=== PATIENT | male | born 1970 | race Caucasian/White ===

== ENCOUNTER 2024-12-13 11:13 | Emergency (ER) | payer BC, OTHER, SELFPAY ==
[2024-12-13] MEDS ORDERED: Ketorolac Tromethamine 30 MG (1 mL) VIAL ONE (13:53)
== END 2024-12-13 14:26 | disposition home or self-care (01) ==
LOC: CSHERS 11:13 → EEVIPCON 11:13 → CSHERS 14:26
DX: S82.001A Unspecified fracture of right patella, initial encounter for closed fracture (principal); I10 Essential (primary) hypertension; X50.1XXA Overexertion from prolonged static or awkward postures, initial encounter; Y93.89 Activity, other specified
CPT/HCPCS: 96372; 99283; J1885